=== PATIENT | female | born 1980 | race Two or more races ===

== ENCOUNTER 2022-12-10 06:20 | Inpatient (IN) | payer BC, OTHER ==
[2022-12-10] MEDS ORDERED: SODIUM CHLORIDE 1,000 ML IV STA ×2 (06:22→06:30)
[2022-12-10] MEDS ORDERED: ONDANSETRON 4 MG/2 ML VIAL ONE (06:29)
[2022-12-10] MEDS ORDERED: KETOROLAC TROMETHAMINE 30 MG/1 ML VIAL IVPUSH ONE (06:30)
[2022-12-10] MEDS ORDERED: ONDANSETRON 4 MG/2 ML VIAL IVPUSH ONE ×2 (06:30→08:57)
[2022-12-10] MEDS ORDERED: KETOROLAC TROMETHAMINE 30 MG/1 ML VIAL ONE (06:30)
[2022-12-10 06:49] VITALS: BMI 21.6
[2022-12-10] MEDS ORDERED: HYDROmorphone HCL/PF 1 MG/ML VIAL ONE (07:03)
[2022-12-10] MEDS ORDERED: HYDROmorphone HCl 2 MG/ML VIAL IVPUSH ONE (07:03)
[2022-12-10 07:53] LABS: ALBUMIN 4.1 g/dl (3.4-5.0); CALCIUM 8.9 mg/dl (8.5-10); CREATININE 0.7 mg/dl (0.55-1.3); POTASSIUM 3.7 mmol/L (3.5-5.1); TOT PROT 6.8 g/dl (6.4-8.2)
[2022-12-10 08:00] LABS: HEMATOCRIT 32.8 % (32.4-45.2); HEMOGLOBIN 10.5 G/dL (10.7-15.3); MCH 20.7 pg (25.7-33.7); MEAN CELL VOLUME 64.7 fl (80-96); MEAN PLT VOLUME 9.1 fl (7.5-11.1); PLATELET COUNT 215.7 10^3/uL (134-434); RBC 5.07 10^6/uL (3.60-5.2); RDW 19.4 % (11.6-15.6); WHITE BLOOD COUNT 9.7 10^3/uL (4.0-10.8)
[2022-12-10] MEDS ORDERED: ACETAMINOPHEN 1000 MG/100 ML BAG IVPB ONE (08:57)
[2022-12-10] MEDS ORDERED: SODIUM CHLORIDE 0.9% 1000 ML INFUS.BAG IV ONE ×3 (08:57→11:55)
[2022-12-10 09:06] LABS: EPITHELIAL CELLS FEW /hpf
[2022-12-10 09:07] LABS: AMORP URATES 1+ /hpf (NONE SEEN)
[2022-12-10 09:08] LABS: ANISOCYTOSIS 2+; PLATELET ESTIMATE ADEQUATE
[2022-12-10] MEDS ORDERED: FAMOTIDINE 20 MG/50 ML IVPB 20 MG/50 ML MG IVPB ONE ×2 (09:55→09:57)
[2022-12-10] MEDS ORDERED: ONDANSETRON 4 MG/2 ML VIAL IVPUSH PRN (11:39)
[2022-12-10] MEDS ORDERED: KETOROLAC TROMETHAMINE 30 MG/1 ML VIAL IVPUSH PRN (11:39)
[2022-12-10] MEDS ORDERED: TAMSULOSIN HCL 0.4 MG CAP PO ONE (12:30)
[2022-12-10] MEDS ORDERED: SODIUM CHLORIDE 1,000 ML IV SCH (14:15)
[2022-12-10] MEDS: ACETAMINOPHEN 1000 MG/100 ML BAG IVPB PRN (20:25)
[2022-12-10 22:06] VITALS: RESP 18
[2022-12-11] MEDS: ACETAMINOPHEN 1000 MG/100 ML BAG IVPB PRN (06:35)
[2022-12-11 08:44] LABS: CALCIUM 7.8 mg/dl (8.5-10); CREATININE 0.6 mg/dl (0.55-1.3); MAGNESIUM 1.7 mg/dL (1.8-2.4); PHOSPHOROUS 2.8 mg/dl (2.5-4.9); POTASSIUM 3.4 mmol/L (3.5-5.1)
[2022-12-11 09:49] LABS: BASO % 0.3 % (0-2.0); EOS % 1.5 % (0-4.5); HEMATOCRIT 27.5 % (32.4-45.2); LYMPH % 15.7 % (8-40); MCHC 32.7 g/dl (32.0-36.0); MEAN CELL VOLUME 61.3 fl (80-96); MEAN PLT VOLUME 8.5 fl (7.5-11.1); MONO % 6.4 % (3.8-10.2); NEUT % 76.1 % (42.8-82.8); PLATELET COUNT 199 10^3/uL (134-434); RBC 4.48 M/mm3 (3.60-5.2); RDW 15.7 % (11.6-15.6); WHITE BLOOD COUNT 8.3 K/mm3 (4.0-10.0)
[2022-12-11 10:04] VITALS: BP 110/62; PULSE 66; TEMP 99
[2022-12-11 10:29] LABS: ANISOCYTOSIS 3+; MACROCYTOSIS 0
== END 2022-12-11 10:31 | disposition home or self-care (01) | DRG 694 ==
LOC: SUPCPDRO 06:20 → FER 06:20 → FM/S 11:54
PROVIDERS: ADMIT Internal Medicine; ATTEND Internal Medicine
DX: N13.2 Hydronephrosis with renal and ureteral calculous obstruction (principal); R10.9 Unspecified abdominal pain
CPT/HCPCS: 36415; 74176-TC; 80048; 80053; 81003; 81015; 81025; 83735; 84100; 84703; 85025; 85027; 99285-25; C9803-CS; U0003; U0005

== ENCOUNTER 2024-09-22 06:08 | Emergency (ER) | payer BC ==
[2024-09-22 06:22] VITALS: BMI 21.6
[2024-09-22] MEDS ORDERED: ONDANSETRON 4 MG/2 ML VIAL ONE ×2 (06:31→10:11)
[2024-09-22] MEDS ORDERED: KETOROLAC TROMETHAMINE 30 MG/1 ML VIAL ONE (06:31)
[2024-09-22] MEDS: SODIUM CHLORIDE 1,000 ML IV STA (06:33)
[2024-09-22] MEDS: ONDANSETRON 4 MG/2 ML VIAL IVPUSH ONE ×2 (06:34→10:15)
[2024-09-22] MEDS: KETOROLAC TROMETHAMINE 30 MG/1 ML VIAL IVPUSH ONE (06:34)
[2024-09-22] MEDS: ACETAMINOPHEN 1000 MG/100 ML BAG IVPB ONE (07:20)
[2024-09-22] MEDS: SODIUM CHLORIDE 0.9% 1000 ML INFUS.BAG IV ONE (07:20)
[2024-09-22 07:21] LABS: HCG,QUALITATIVE URINE Negative
[2024-09-22] MEDS ORDERED: ACETAMINOPHEN INJECTION 100 ML ONE (07:21)
[2024-09-22 07:39] LABS: HEMATOCRIT 33.1 % (32.4-45.2); HEMOGLOBIN 10.8 G/dL (10.7-15.3); MCH 20.7 pg (25.7-33.7); MCHC 32.5 g/dl (32.0-36.0); MEAN CELL VOLUME 63.6 fl (80-96); MEAN PLT VOLUME 10.1 fl (7.5-11.1); PLATELET COUNT 255.4 10^3/uL (134-434); RDW 19.3 % (11.6-15.6); WHITE BLOOD COUNT 9.2 10^3/uL (4.0-10.8)
[2024-09-22 07:44] LABS: EPITHELIAL CELLS 0-5 /hpf
[2024-09-22 07:52] LABS: ALBUMIN 4.3 g/dl (3.4-5.0); BILIRUBIN,TOTAL 1.7 mg/dl (0.2-1); CALCIUM 8.9 mg/dl (8.5-10.1); CREATININE 0.7 mg/dl (0.6-1.3); POTASSIUM 3.7 mmol/L (3.5-5.1); TOT PROT 6.4 g/dl (6.4-8.2)
[2024-09-22] MEDS ORDERED: HYDROmorphone HCL/PF 1 MG/ML VIAL ONE (08:02)
[2024-09-22] MEDS: HYDROmorphone HCl 2 MG/ML VIAL IVPB ONE (08:07)
[2024-09-22 08:15] LABS: ANISOCYTOSIS 1+
[2024-09-22 09:47] VITALS: BP 94/53; PULSE 79; RESP 18; TEMP 97.6
[2024-09-22] MEDS ORDERED: TAMSULOSIN HCL 0.4 MG CAP ONE (10:16)
[2024-09-22] MEDS: TAMSULOSIN HCL 0.4 MG CAP PO ONE (10:53)
[2024-09-22 11:52] LABS: HIV INTERPRETATION NEGATIVE (NEGATIVE)
== END 2024-09-22 12:26 | disposition home or self-care (01) ==
LOC: FER 06:08
PROC: 3E033NZ Introduction of Analgesics, Hypnotics, Sedatives into Peripheral Vein, Percutaneous Approach (ICD-10-PCS; principal; 2024-09-22)
PROC: 3E033NZ Introduction of Analgesics, Hypnotics, Sedatives into Peripheral Vein, Percutaneous Approach (ICD-10-PCS; 2024-09-22)
PROC: 3E0333Z Introduction of Anti-inflammatory into Peripheral Vein, Percutaneous Approach (ICD-10-PCS; 2024-09-22)
PROC: 3E033GC Introduction of Other Therapeutic Substance into Peripheral Vein, Percutaneous Approach (ICD-10-PCS; 2024-09-22)
PROC: 3E033GC Introduction of Other Therapeutic Substance into Peripheral Vein, Percutaneous Approach (ICD-10-PCS; 2024-09-22)
PROC: 3E0337Z Introduction of Electrolytic and Water Balance Substance into Peripheral Vein, Percutaneous Approach (ICD-10-PCS; 2024-09-22)
DX: R10.9 Unspecified abdominal pain (principal); R11.2 Nausea with vomiting, unspecified; N23 Unspecified renal colic
CPT/HCPCS: 36415; 74176-TC; 80053; 81003; 81015; 84703; 85027; 86803; 87389; 99285-25; J0131